=== PATIENT | male | born 1975 | race Caucasian/White ===

== ENCOUNTER → 2017-06-21 | Outpatient (CLI) | payer MEDICARE, OTHER ==
[2017-06-21 12:02] LABS: Basophils % (A) 1 %; CH 30.6; CHCM 34.2; Eosinophils # (A) 0.2 k/uL (0-0.7); Eosinophils % (A) 3 %; HCT 48.2 % (39.0-53.0); HDW 2.75; HGB 15.7 gm/dL (13.0-17.5); Luc # (Auto) 0.14; Luc % (Auto) 2; Lymphocytes # (A) 1.6 k/uL (1.0-4.8); Lymphocytes % (A) 26 %; MCH 29.4 pg (25.0-35.0); MCHC 32.7 g/dL (31.0-37.0); MCV 89.9 fL (80.0-100.0); Mean Platelet Volume 7.8; Monocytes # (A) 0.5 k/uL (0-1.0); Monocytes % (A) 8 %; Neutrophils # (A) 3.5 k/uL (1.3-7.7); Neutrophils % (A) 60 %; RBC 5.36 m/uL (4.30-5.90); WBC 5.9 k/uL (3.8-10.6); WBC (Perox) 5.87
[2017-06-21 12:15] LABS: ALT 44 U/L (21-72); AST 22 U/L (17-59); Alkaline Phosphatase 79 U/L (38-126); Anion Gap 10 mmol/L; Blood Urea Nitrogen 18 mg/dL (9-20); Calcium 9.5 mg/dL (8.4-10.2); Carbon Dioxide 29 mmol/L (22-30); Chloride 105 mmol/L (98-107); Cholesterol 171 mg/dL (<200); Glucose 90 mg/dL (74-99); HDL Cholesterol 54 mg/dL (40-60); Non-African American GFR(MDRD) 55 (>60 ml/min/1.73 sqM); Potassium 4.8 mmol/L (3.5-5.1); Sodium 144 mmol/L (137-145); Total Bilirubin 1.9 mg/dL (0.2-1.3); Total Protein 7.6 g/dL (6.3-8.2)
== END | disposition home or self-care (01) ==
LOC: LABWHC1 11:39
PROVIDERS: ATTEND Internal Medicine
DX: I10 Essential (primary) hypertension (principal); E78.5 Hyperlipidemia, unspecified
CPT/HCPCS: 36415; 80053; 80061; 84439; 84443; 85025; 99214

== ENCOUNTER 2017-11-20 07:46 | Emergency (ER) | payer MEDICARE, OTHER ==
[2017-11-20 08:31] LABS: Eosinophils % (A) 1 %; MCH 29.4 pg (25.0-35.0)
--- NOTE | 2017-11-20 08:31 | ED ---
General Adult HPI - General Chief complaint: Altered Mental Status Stated complaint: altered mental status Time Seen by Provider: 11/20/17 07:46 Source: patient, EMS, RN notes reviewed Mode of arrival: EMS Limitations: no limitations - History of Present Illness Initial comments: This a 42-year-old male who presents emergency Department with a past medical history significant for seizures. Patient states he remembers going into the tub the next thing he remembers is the paramedics were there. Patient states he believes he had a seizure. Patient states he has not been sick in the last few days and he does not have any complaints currently. Patient denies headache patient denies numbness weakness. Patient denies any visual disturbances. Patient denies any palpitations chest pain difficulty breathing or shortness of breath. Patient denies any abdominal pain patient denies nausea vomiting diarrhea. Patient denies any recent fever or chills or cough. - Related Data Home Medications Medication Instructions Recorded Confirmed Citalopram Hydrobromide [CeleXA] 40 mg PO DAILY 10/31/17 11/20/17 Dextroamphetamine/Amphetamine 20 mg PO BID@0800,1400 10/31/17 11/20/17 [Adderall] Losartan Potassium 50 mg PO DAILY 10/31/17 11/20/17 Montelukast [Singulair] 10 mg PO HS 10/31/17 11/20/17 amLODIPine [Norvasc] 5 mg PO BID 10/31/17 11/20/17 lamoTRIgine [LaMICtal] 100 mg PO DAILY 10/31/17 11/20/17 levETIRAcetam [Keppra] 500 mg PO Q12HR 10/31/17 11/20/17 Albuterol Inhaler [Ventolin Hfa 2 puff INHALATION RT-Q4H PRN 11/20/17 11/20/17 Inhaler] lamoTRIgine [LaMICtal] 200 mg PO HS 11/20/17 11/20/17 Allergies Allergy/AdvReac Type Severity Reaction Status Date / Time No Known Allergies Allergy Verified 11/20/17 07:56 Review of Systems ROS Statement: Those systems with pertinent positive or pertinent negative responses have been documented in the HPI. ROS Other: All systems not noted in ROS Statement are negative. Past Medical History Past Medical History: Asthma, Hypertension, Seizure Disorder Additional Past Medical History / Comment(s): COPD, bronchial asthma, hypertension, seizure disorder, ADHD, bipolar disorder History of Any Multi-Drug Resistant Organisms: None Reported Past Surgical History: No Surgical Hx Reported Past Anesthesia/Blood Transfusion Reactions: Unable to Obtain Additional Past Anesthesia/Blood Transfusion Reaction / Comment(s): Pt has never had any surgery. Past Psychological History: Bipolar Smoking Status: Current every day smoker Past Alcohol Use History: None Reported Past Drug Use History: None Reported - Past Family History Mother Family Medical History: Diabetes Mellitus, Hypertension Additional Family Medical History / Comment(s): Mother has depression. Father Family Medical History: Hypertension Additional Family Medical History / Comment(s): Father has depression. General Exam - General Exam Comments Initial Comments: GENERAL: Patient is well-developed and well-nourished. Patient is nontoxic and well- hydrated and is in mild distress. ENT: Neck is soft and supple. No significant lymphadenopathy is noted. Oropharynx is clear. Moist mucous membranes. Neck has full range of motion without eliciting any pain. EYES: The sclera were anicteric and conjunctiva were pink and moist. Extraocular movements were intact and pupils were equal round and reactive to light. Eyelids were unremarkable. PULMONARY: Unlabored respirations. Good breath sounds bilaterally. No audible rales rhonchi or wheezing was noted. CARDIOVASCULAR: There is a regular rate and rhythm without any murmurs gallops or rubs. ABDOMEN: Soft and nontender with normal bowel sounds. No palpable organomegaly was noted. There is no palpable pulsatile mass. SKIN: Skin is clear with no lesions or rashes and otherwise unremarkable. NEUROLOGIC: Patient is alert and oriented x3. Cranial nerves II through XII are grossly intact. Motor and sensory are also intact. Normal speech, volume and content. Symmetrical smile. MUSCULOSKELETAL: Normal extremities with adequate strength and full range of motion. No lower extremity swelling or edema. No calf tenderness. LYMPHATICS: No significant lymphadenopathy is noted PSYCHIATRIC: Normal psychiatric evaluation. Normal interpersonal interactions appears functionally intact in deals appropriately with others. No signs of depression. No signs of anxiety. No delusions. No hallucinations. Limitations: no limitations Course Vital Signs 11/20/17 11/20/17 07:48 08:38 Temperature 97.9 F Pulse Rate 89 83 Respiratory 18 18 Rate Blood Pressure 179/84 131/79 O2 Sat by Pulse 96 98 Oximetry Medical Decision Making - Medical Decision Making Patient remained without symptoms throughout his ED course. Patient states she' ll follow-up with his neurologist. Patient should not drive until he is cleared by his neurologist. - Lab Data Result diagrams: 11/20/17 08:10 11/20/17 08:10 Lab Results 11/20/17 11/20/17 Range/Units 08:10 08:10 WBC 4.9 (3.8-10.6) k/uL RBC 4.28 L (4.30-5.90) m/uL Hgb 12.6 L D (13.0-17.5) gm/dL Hct 38.1 L (39.0-53.0) % MCV 89.0 (80.0-100.0) fL MCH 29.4 (25.0-35.0) pg MCHC 33.0 (31.0-37.0) g/dL RDW 13.0 (11.5-15.5) % Plt Count 178 (150-450) k/uL Neutrophils % 67 % Lymphocytes % 22 % Monocytes % 8 % Eosinophils % 1 % Basophils % 1 % Neutrophils # 3.2 (1.3-7.7) k/uL Lymphocytes # 1.1 (1.0-4.8) k/uL Monocytes # 0.4 (0-1.0) k/uL Eosinophils # 0.1 (0-0.7) k/uL Basophils # 0.0 (0-0.2) k/uL Sodium 147 H (137-145) mmol/L Potassium 3.6 (3.5-5.1) mmol/L Chloride 108 H (98-107) mmol/L Carbon Dioxide 27 (22-30) mmol/L Anion Gap 12 mmol/L BUN 21 H (9-20) mg/dL Creatinine 1.20 (0.66-1.25) mg/dL Est GFR (MDRD) Af Amer >60 (>60 ml/min/1.73 sqM) Est GFR (MDRD) Non-Af >60 (>60 ml/min/1.73 sqM) Glucose 99 (74-99) mg/dL Calcium 9.6 (8.4-10.2) mg/dL Total Bilirubin 1.9 H (0.2-1.3) mg/dL AST 29 (17-59) U/L ALT 47 (21-72) U/L Alkaline Phosphatase 72 (38-126) U/L Total Protein 6.6 (6.3-8.2) g/dL Albumin 3.9 (3.5-5.0) g/dL Disposition Clinical Impression: Seizure Disposition: HOME SELF-CARE Instructions: Recurrent Seizures in Adults (ED) Referrals: Estefania Eddy MD [Primary Care Provider] - 1-2 days Time of Disposition: 09:11
[2017-11-20 08:38] LABS: Basophils % (A) 1 %; Eosinophils # (A) 0.1 k/uL (0-0.7); HCT 38.1 % (39.0-53.0); HGB 12.6 gm/dL (13.0-17.5); Lymphocytes # (A) 1.1 k/uL (1.0-4.8); Lymphocytes % (A) 22 %; Mean Platelet Volume 7.1; Monocytes # (A) 0.4 k/uL (0-1.0); Monocytes % (A) 8 %; Neutrophils # (A) 3.2 k/uL (1.3-7.7); Neutrophils % (A) 67 %; Platelet Count 178 k/uL (150-450); RBC 4.28 m/uL (4.30-5.90); WBC 4.9 k/uL (3.8-10.6)
[2017-11-20 08:44] LABS: ALT 47 U/L (21-72); AST 29 U/L (17-59); Albumin 3.9 g/dL (3.5-5.0); Alkaline Phosphatase 72 U/L (38-126); Anion Gap 12 mmol/L; Blood Urea Nitrogen 21 mg/dL (9-20); Calcium 9.6 mg/dL (8.4-10.2); Carbon Dioxide 27 mmol/L (22-30); Chloride 108 mmol/L (98-107); Glucose 99 mg/dL (74-99); Potassium 3.6 mmol/L (3.5-5.1); Sodium 147 mmol/L (137-145); Total Bilirubin 1.9 mg/dL (0.2-1.3); Total Protein 6.6 g/dL (6.3-8.2)
[2017-11-21 05:43] LABS: Lamotrigine (Lamictal) 4.3 ug/mL (2.0-15.0)
[2017-11-21 22:56] VITALS: BP 129/81; PULSE 80; RESP 18; TEMP 98.9
== END 2017-11-20 10:00 | disposition home or self-care (01) ==
LOC: EC 07:46
DX: G40.909 Epilepsy, unspecified, not intractable, without status epilepticus (principal); R41.82 Altered mental status, unspecified; I10 Essential (primary) hypertension; F31.9 Bipolar disorder, unspecified; F90.9 Attention-deficit hyperactivity disorder, unspecified type; F17.200 Nicotine dependence, unspecified, uncomplicated; Z79.899 Other long term (current) drug therapy
CPT/HCPCS: 36415; 80053; 80175; 80177; 85025; 99285

== ENCOUNTER → 2018-11-05 | Outpatient (CLI) | payer MEDICARE, OTHER | END | disposition home or self-care (01) | LOC: LABWHC1 10:35 | PROVIDERS: ATTEND Psychiatry & Neurology Neurology | DX: G40.009 Localization-related (focal) (partial) idiopathic epilepsy and epileptic syndromes with seizures of localized onset, not intractable, without status epilepticus (principal) | CPT/HCPCS: 36415; 80177 ==

== ENCOUNTER 2025-03-10 15:20 | Inpatient (IN) | payer MEDICARE, OTHER ==
--- NOTE | 2025-03-10 15:54 | ED ---
SOB HPI - General Chief Complaint: Shortness of Breath Stated Complaint: SOB Time Seen by Provider: 03/10/25 15:33 Source: patient, EMS, RN notes reviewed, old records reviewed Mode of arrival: EMS Limitations: no limitations - History of Present Illness Initial Comments: This is a 49-year-old male presenting with shortness of breath history of COPD continues to smoke, does do an inhaler at home with no help. Patient was seen by EMS found to have oxygen in the low 80s improving with breathing treatments and supplemental oxygen. Patient does not wear home oxygen states symptoms began yesterday worsening into today. Any activity makes him severely short of breath. No fevers no chest pain MD Complaint: shortness of breath, cough -: days(s) (2) Severity: moderate, severe Severity scale (1-10): 10 (Severe shortness of breath) Consistency: constant Improves With: rest Worsens With: exertion Known History Of: COPD, asthma Context: recent URI, recent illness Associated Symptoms: denies other symptoms - Related Data Home Medications Medication Instructions Recorded Confirmed Citalopram Hydrobromide [CeleXA] 40 mg PO DAILY 10/31/17 11/20/17 Dextroamphetamine/Amphetamine 20 mg PO BID@0800,1400 10/31/17 11/20/17 [Adderall] Losartan Potassium 50 mg PO DAILY 10/31/17 11/20/17 Montelukast [Singulair] 10 mg PO HS 10/31/17 11/20/17 amLODIPine [Norvasc] 5 mg PO BID 10/31/17 11/20/17 lamoTRIgine [LaMICtal] 100 mg PO DAILY 10/31/17 11/20/17 levETIRAcetam [Keppra] 500 mg PO Q12HR 10/31/17 11/20/17 Albuterol Inhaler [Ventolin Hfa 2 puff INHALATION RT-Q4H PRN 11/20/17 11/20/17 Inhaler] lamoTRIgine [LaMICtal] 200 mg PO HS 11/20/17 11/20/17 Allergies Allergy/AdvReac Type Severity Reaction Status Date / Time No Known Allergies Allergy Verified 03/10/25 17:11 Review of Systems ROS Statement: Those systems with pertinent positive or pertinent negative responses have been documented in the HPI. ROS Other: All systems not noted in ROS Statement are negative. Past Medical History Past Medical History: Asthma, Hypertension, Seizure Disorder Additional Past Medical History / Comment(s): COPD, bronchial asthma, hypertension, seizure disorder, ADHD, bipolar disorder History of Any Multi-Drug Resistant Organisms: None Reported Past Surgical History: No Surgical Hx Reported Past Anesthesia/Blood Transfusion Reactions: Unable to Obtain Additional Past Anesthesia/Blood Transfusion Reaction / Comment(s): Pt has never had any surgery. Past Psychological History: ADD/ADHD, Bipolar Smoking Status: Current every day smoker Past Alcohol Use History: None Reported Past Drug Use History: None Reported - Past Family History Mother Family Medical History: Diabetes Mellitus, Hypertension Additional Family Medical History / Comment(s): Mother has depression. Father Family Medical History: Hypertension Additional Family Medical History / Comment(s): Father has depression. General Exam General appearance: alert, in no apparent distress, anxious Head exam: Present: atraumatic, normocephalic, normal inspection Eye exam: Present: normal appearance, PERRL, EOMI. Absent: scleral icterus, conjunctival injection, periorbital swelling ENT exam: Present: normal exam, mucous membranes moist Neck exam: Present: normal inspection. Absent: tenderness, meningismus, lymphadenopathy Respiratory exam: Present: respiratory distress, wheezes, accessory muscle use, decreased breath sounds, prolonged expiratory. Absent: rales, rhonchi, stridor Cardiovascular Exam: Present: regular rate, normal rhythm, normal heart sounds. Absent: systolic murmur, diastolic murmur, rubs, gallop, clicks GI/Abdominal exam: Present: soft, normal bowel sounds. Absent: distended, tenderness, guarding, rebound, rigid Extremities exam: Present: normal inspection, full ROM, normal capillary refill. Absent: tenderness, pedal edema, joint swelling, calf tenderness Back exam: Present: normal inspection Neurological exam: Present: alert, oriented X3, CN II-XII intact Psychiatric exam: Present: normal affect, normal mood Skin exam: Present: warm, dry, intact, normal color. Absent: rash Course Vital Signs 03/10/25 03/10/25 03/10/25 15:24 16:29 16:39 Temperature 98.0 F Pulse Rate 75 74 71 Respiratory 20 18 18 Rate Blood Pressure 125/81 O2 Sat by Pulse 92 L Oximetry - Reevaluation(s) Reevaluation #1: 03/10/25 16:08 Medical records reviewed No significant recent or inpatient admissions for COPD Reevaluation #2: 03/10/25 17:13 Patient continues to improve with supplemental O2 and breathing treatments Reevaluation #3: 03/10/25 17:13 Patient informed of results questions answered Reevaluation #4: 03/10/25 16:02 Was pt. sent in by a medical professional or institution (, [facility], [facility], urgent care, hospital, or residential...) When possible be specific @ -no Did you speak to anyone other than the patient for history (EMS, parent, family, police, friend...)? What history was obtained from this source @ -no Did you review nursing and triage notes (agree or disagree)? Why? @ -agree Are old charts reviewed (outside hosp., previous admission, EMS record, old EKG, old radiological studies, urgent care reports/EKG's, residential records)? Report findings @ -yes Differential Diagnosis (chest pain, altered mental status, abdominal pain women, abdominal pain men, vaginal bleeding, weakness, fever, dyspnea, syncope, headache, dizziness, GI bleed, back pain, seizure, CVA, palpatations, mental health, musculoskeletal)? @ -prior EKG interpreted by me (3pts min.). @ -yes X-rays interpreted by me (1pt min.). @ -yes negative for acute disease CT interpreted by me (1pt min.). @ -no U/S interpreted by me (1pt. min.). @ -no What testing was considered but not performed or refused? (CT, X-rays, U/S, labs)? Why? @ -none What meds were considered but not given or refused? Why? @ -none Did you discuss the management of the patient with other professionals (professionals i.e. [facility], [facility], lab, RT, psych nurse, social studies department chair, product handler, teacher, district resource officer, immigration case worker)? Give summary @ -no Was smoking cessation discussed for >3mins.? @ -no Was critical care preformed (if so, how long)? @ -no Were there social determinants of health that impacted care today? How? (Homelessness, low income, unemployed, alcoholism, drug addiction, transportation, low edu. Level, literacy, decrease access to med. care, fdc, rehab)? @ -none Was there de-escalation of care discussed even if they declined (Discuss DNR or withdrawal of care, Hospice)? DNR status @ -no What co-morbidities impacted this encounter? (DM, HTN, Smoking, COPD, CAD, Cancer, CVA, ARF, Chemo, Hep., AIDS, mental health diagnosis, sleep apnea, morbid obesity)? @ -none Was patient admitted / discharged? Hospital course, mention meds given and route, prescriptions, significant lab abnormalities, going to OR and other pertinent info. @ - Undiagnosed new problem with uncertain prognosis? @ -no Drug Therapy requiring intensive monitoring for toxicity (Heparin, Nitro, Insulin, Cardizem)? @ -no Were any procedures done? @ -no Diagnosis/symptom? @ - Acute, or Chronic, or Acute on Chronic? @ -Acute Uncomplicated (without systemic symptoms) or Complicated (systemic symptoms)? @ -Complicated Side effects of treatment? @ -no Exacerbation, Progression, or Severe Exacerbation? @ -exacerbation Poses a threat to life or bodily function? How? (Chest pain, [place], [place], pneumonia, PE, COPD, DKA, ARF, appy, cholecystitis, CVA, Diverticulitis, Homicidal, Suicidal, threat to staff... and all critical care pts) @ -yes Reevaluation #5: Differential Dyspnea: Coronary syndrome, arrhythmia, tamponade, asthma, COPD, pulmonary embolism, pneumonia, pneumothorax, pulmonary effusion, anaphylaxis, diabetic ketoacidosis, flailed chest, pulmonary contusion, diaphragmatic rupture, anemia, neuromuscular, this is not meant to be an all-inclusive list. - Consultations Consultation #1: Spoke with [facility] who agrees to admit this patient Medical Decision Making - Medical Decision Making 49 male to ER in severe respiratory distress coming in with hypoxia and COPD exacerbation improving with treatments here in the ER patient found to have pneumonia on x-ray and will admit for IV antibiotics and supportive care - Lab Data Result diagrams: 03/10/25 15:41 03/10/25 15:41 Lab Results 03/10/25 03/10/25 03/10/25 Range/Units 15:41 15:41 15:41 WBC 6.15 (4.50-10.00) 10*3/uL RBC 4.14 L (4.40-5.60) 10*6/uL Hgb 12.5 L (13.0-17.0) g/dL Hct 36.6 L (39.6-50.0) % MCV 88.4 (80.0-97.0) fL MCH 30.2 (27.0-32.0) pg MCHC 34.2 (32.0-37.0) g/dL Plt Count 175 (140-440) 10*3/uL MPV 10.1 (9.5-12.2) fL Immature Gran % (Auto) 0.3 % Neutrophils % 75.7 % Lymphocytes % 12.7 % Monocytes % 9.4 % Eosinophils % 1.6 % Basophils % 0.3 % Immature Gran # 0.02 (0.00-0.04) 10*3/uL Neutrophils # 4.65 (1.80-7.70) 10*3/uL Lymphocytes # 0.78 L (0.90-5.00) 10*3/uL Monocytes # 0.58 (0.20-1.00) 10*3/uL Eosinophils # 0.10 (0.04-0.35) 10*3/uL Basophils # 0.02 (0.00-0.10) 10*3/uL Immature Plt Fraction 1.9 (1.1-6.1) % Sodium 140 (137-145) mmol/L Potassium 3.7 (3.5-5.1) mmol/L Chloride 103 (98-107) mmol/L Carbon Dioxide 29 (22-30) mmol/L Anion Gap 8 mmol/L BUN 14 (9-20) mg/dL Creatinine 1.34 H (0.66-1.25) mg/dL Est GFR (CKD-EPI)AfAm 71 (>60 ml/min/1.73 sqM) Est GFR (CKD-EPI)NonAf 61 (>60 ml/min/1.73 sqM) Glucose 118 H (74-99) mg/dL Plasma Lactic Acid Pietro 0.7 (0.7-2.0) mmol/L Calcium 8.8 (8.4-10.2) mg/dL Magnesium 2.0 (1.6-2.3) mg/dL Total Bilirubin 1.3 (0.2-1.3) mg/dL AST 17 (17-59) U/L ALT 14 (4-49) U/L Alkaline Phosphatase 70 (38-126) U/L Troponin I (0.000-0.034) ng/mL NT-Pro-B Natriuret Pep 464 pg/mL Total Protein 6.4 (6.3-8.2) g/dL Albumin 3.9 (3.5-5.0) g/dL 03/10/25 Range/Units 15:41 WBC (4.50-10.00) 10*3/uL RBC (4.40-5.60) 10*6/uL Hgb (13.0-17.0) g/dL Hct (39.6-50.0) % MCV (80.0-97.0) fL MCH (27.0-32.0) pg MCHC (32.0-37.0) g/dL Plt Count (140-440) 10*3/uL MPV (9.5-12.2) fL Immature Gran % (Auto) % Neutrophils % % Lymphocytes % % Monocytes % % Eosinophils % % Basophils % % Immature Gran # (0.00-0.04) 10*3/uL Neutrophils # (1.80-7.70) 10*3/uL Lymphocytes # (0.90-5.00) 10*3/uL Monocytes # (0.20-1.00) 10*3/uL Eosinophils # (0.04-0.35) 10*3/uL Basophils # (0.00-0.10) 10*3/uL Immature Plt Fraction (1.1-6.1) % Sodium (137-145) mmol/L Potassium (3.5-5.1) mmol/L Chloride (98-107) mmol/L Carbon Dioxide (22-30) mmol/L Anion Gap mmol/L BUN (9-20) mg/dL Creatinine (0.66-1.25) mg/dL Est GFR (CKD-EPI)AfAm (>60 ml/min/1.73 sqM) Est GFR (CKD-EPI)NonAf (>60 ml/min/1.73 sqM) Glucose (74-99) mg/dL Plasma Lactic Acid Pietro (0.7-2.0) mmol/L Calcium (8.4-10.2) mg/dL Magnesium (1.6-2.3) mg/dL Total Bilirubin (0.2-1.3) mg/dL AST (17-59) U/L ALT (4-49) U/L Alkaline Phosphatase (38-126) U/L Troponin I <0.012 (0.000-0.034) ng/mL NT-Pro-B Natriuret Pep pg/mL Total Protein (6.3-8.2) g/dL Albumin (3.5-5.0) g/dL - Radiology Data Radiology results: report reviewed (Chest x-ray is positive for pneumonia), image reviewed Critical Care Time Critical Care Time: Yes Total Critical Care Time: 31 Disposition Clinical Impression: Asthma with acute exacerbation, Acute exacerbation of chronic obstructive pulm onary disease, Community acquired pneumonia, Hypoxia Disposition: ADMITTED IP TO THIS [facility] Condition: Serious Is patient prescribed a controlled substance at d/c from ED?: No Referrals: Yenni Salinas MD [Primary Care Provider] - 1-2 days Time of Disposition: 17:00
[2025-03-10 15:56] LABS: Basophils # (A) 0.02 10*3/uL (0.00-0.10); Basophils % (A) 0.3 %; Eosinophils % (A) 1.6 %; HCT 36.6 % (39.6-50.0); HGB 12.5 g/dL (13.0-17.0); Immature Platelet Fraction 1.9 % (1.1-6.1); Lymphocytes # (A) 0.78 10*3/uL (0.90-5.00); Lymphocytes % (A) 12.7 %; MCH 30.2 pg (27.0-32.0); MCHC 34.2 g/dL (32.0-37.0); MCV 88.4 fL (80.0-97.0); Mean Platelet Volume 10.1 fL (9.5-12.2); Monocytes # (A) 0.58 10*3/uL (0.20-1.00); Monocytes % (A) 9.4 %; Neutrophils # (A) 4.65 10*3/uL (1.80-7.70); Neutrophils % (A) 75.7 %; RBC 4.14 10*6/uL (4.40-5.60); RDW 12.9 % (11.5-14.5); WBC 6.15 10*3/uL (4.50-10.00)
[2025-03-10 16:03] LABS: ALT 14 U/L (4-49); AST 17 U/L (17-59); African American GFR (CKD) 71 (>60 ml/min/1.73 sqM); Albumin 3.9 g/dL (3.5-5.0); Alkaline Phosphatase 70 U/L (38-126); Anion Gap 8 mmol/L; Blood Urea Nitrogen 14 mg/dL (9-20); Calcium 8.8 mg/dL (8.4-10.2); Carbon Dioxide 29 mmol/L (22-30); Chloride 103 mmol/L (98-107); Glucose 118 mg/dL (74-99); Non-African American GFR(CKD) 61 (>60 ml/min/1.73 sqM); Potassium 3.7 mmol/L (3.5-5.1); Sodium 140 mmol/L (137-145); Total Bilirubin 1.3 mg/dL (0.2-1.3); Total Protein 6.4 g/dL (6.3-8.2)
--- NOTE | 2025-03-10 16:06 | XR ---
EXAMINATION TYPE: XR chest 2V DATE OF EXAM: 03/10/2025 4:00 PM COMPARISON: Chest radiographs from 11/01/2017. CLINICAL INDICATION: Male, 49 years old with history of difficulty breathing; [facility] TECHNIQUE: XR chest 2V Frontal and lateral views of the chest. FINDINGS: Lungs/Pleura: Right lower lobe airspace opacities on frontal view. There is no evidence of pleural ef fusion, focal consolidation, or pneumothorax. Pulmonary vascularity: Unremarkable. Heart/mediastinum: Cardiomediastinal silhouette is unremarkable. Musculoskeletal: No acute osseous pathology. IMPRESSION: Right lower lobe airspace opacities correlate for pneumonia [facility] Miguel Mott, , 03/10/2025 4:03 PM
[2025-03-10 16:10] LABS: NT-Pro-B-Type Natriuretic Pept 464 pg/mL
[2025-03-10] MEDS: IPRATROPIUM-ALBUTEROL 3 ML NEB INHALATION STA ×2 (16:29→18:37)
[2025-03-10] MEDS: methylPREDNISolone SOD SUCCI 125 MG/2 ML VIAL IV STA (16:33)
[2025-03-10] MEDS: SODIUM CHLORIDE 0.9% 1,000 ML IV SCH (16:35)
[2025-03-10 16:49] LABS: Platelet Count 175 10*3/uL (140-440)
[2025-03-10] MEDS ORDERED: PNEUMONIA PROTOCOL UTILIZED 1 EACH MISC PO PRN (17:11)
[2025-03-10 17:18] LABS: Partial Thromboplastin Time 26.1 sec (22.0-30.0)
[2025-03-10] MEDS: AZITHROMYCIN 500 MG in SODIUM CHLORIDE 0.9% 250 ML IVPB STA (19:29)
[2025-03-10] MEDS: ALBUTEROL NEBULIZED 2.5 MG/3 ML INHALATION SCH (19:59)
--- NOTE | 2025-03-11 03:35 | P.CNPUL ---
History of Present Illness Consult date: 03/11/25 Requesting physician: Elías Van Reason for consult: hypoxemia Chief complaint: Shortness of breath History of present illness: Patient is a 49-year-old male with past medical history significant for asthma, current ongoing tobacco dependence, seizure disorder, hypertension. His primary care provider is Dr. Salinas. Patient brought in by EMS yesterday afternoon after being originally called for increased work of breathing. Patient was found to be hypoxic with an SpO2 reading in the low 80s on room air. No improvement with multiple nebulized treatments. Reported to be in some respiratory distress and wheezing in the ED. Patient states he had a hard time breathing over the last 2 days. Associated cough with occasional sputum production. Denies any fevers or chills. Denies hemoptysis. Denies nausea, vomiting, diarrhea, abdominal pain. Denies any recent outpatient treatment with antibiotics. Denies any known sick contacts. Denies any chest pain heart palpitations, lightheadedness or syncopal events, lower extremity edema. States he does have a history of asthma/COPD, has an as needed albuterol rescue inhaler at home which he does not routinely need. He also smokes approximately 1 pack/day. Workup in the emergency department including a chest x-ray remarkable for a subtle right lower lobe airspace opacity. CBC: WBC count 6, hemoglobin 12.5, platelets 175. CMP with sodium 140, potassium 3.7, chloride 103, serum bicarb 29, BUN 14, creatinine 1.34, glucose 118. Lactic 0.7. LFTs unremarkable. Troponin less than 0.012. NT proBNP 464. Normal saline infusing at 50 mL/h. Patient currently being evaluated on the general medical floor. He is sitting up in bed on 2 L/min nasal cannula. Endorses above-mentioned symptoms. Not in any acute distress while at rest. Currently afebrile. Covered on a combination of azithromycin and Rocephin. Nontoxic appearance. Vital signs are stable. Review of Systems Constitutional: Reports fatigue, Denies chills, Denies fever, Denies poor appetite, Denies sweats, Denies weakness, Denies weight gain, Denies weight loss Ears, nose, mouth and throat: Denies headache, Denies nasal congestion, Denies nasal discharge, Denies post-nasal drip, Denies sinus pain, Denies sinus pressure, Denies sore throat Cardiovascular: Reports dyspnea on exertion, Reports shortness of breath, Denies chest pain, Denies leg edema, Denies lightheadedness, Denies orthopnea, Denies palpitations, Denies paroxysmal nocturnal dyspnea, Denies syncope Respiratory: Reports congestion, Reports cough with sputum, Reports dyspnea, Reports wheezing, Denies hemoptysis, Denies home oxygen, Denies pain on inspiration Gastrointestinal: Denies abdominal pain, Denies change in bowel habits, Denies diarrhea, Denies nausea, Denies vomiting Genitourinary: Denies dysuria Musculoskeletal: Denies limitation of motion Integumentary: Denies unusual bruising Neurological: Reports seizures (Last reported seizure approximately 4 to 5 years ago), Denies headaches, Denies syncope Psychiatric: Denies anxiety, Denies depression Past Medical History Past Medical History: Asthma, Hypertension, Seizure Disorder Additional Past Medical History / Comment(s): COPD, bronchial asthma, hypertension, seizure disorder, ADHD, bipolar disorder History of Any Multi-Drug Resistant Organisms: None Reported Past Surgical History: No Surgical Hx Reported Past Anesthesia/Blood Transfusion Reactions: Unable to Obtain Additional Past Anesthesia/Blood Transfusion Reaction / Comment(s): Pt has never had any surgery. Past Psychological History: ADD/ADHD, Bipolar Additional Psychological History / Comment(s): Pt resides with family. He works in [employer]. He is independent. Smoking Status: Current every day smoker Past Alcohol Use History: None Reported Additional Past Alcohol Use History / Comment(s): Pt started smoking in 1990 and is a ppd smoker. Past Drug Use History: None Reported - Past Family History Mother Family Medical History: Diabetes Mellitus, Hypertension Additional Family Medical History / Comment(s): Mother has depression. Father Family Medical History: Hypertension Additional Family Medical History / Comment(s): Father has depression. Medications and Allergies Home Medications Medication Instructions Recorded Confirmed Type Citalopram Hydrobromide [CeleXA] 40 mg PO DAILY 10/31/17 03/10/25 History Dextroamphetamine/Amphetamine 40 mg PO DAILY 10/31/17 03/10/25 History [Adderall] amLODIPine [Norvasc] 10 mg PO DAILY 10/31/17 03/10/25 History lamoTRIgine [LaMICtal] 200 mg PO DAILY 10/31/17 03/10/25 History levETIRAcetam [Keppra] 1,000 mg PO Q12HR 10/31/17 03/10/25 History Albuterol Inhaler [Ventolin Hfa 2 puff INHALATION RT-Q6H PRN 11/20/17 03/10/25 History Inhaler] lamoTRIgine [LaMICtal] 100 mg PO HS 11/20/17 03/10/25 History Losartan Potassium 100 mg PO DAILY 03/10/25 03/10/25 History Allergies Allergy/AdvReac Type Severity Reaction Status Date / Time No Known Allergies Allergy Verified 03/10/25 17:11 Physical Exam Vitals: Vital Signs Temp Pulse Pulse Resp BP BP Pulse Ox 03/11/25 00:45 98.0 F 63 18 105/59 95 03/10/25 21:43 98.7 F 66 20 121/76 93 L 03/10/25 20:56 76 16 138/75 93 L 03/10/25 20:14 84 03/10/25 20:00 83 03/10/25 19:31 86 18 143/73 92 L 03/10/25 16:39 71 18 03/10/25 16:29 74 18 03/10/25 15:24 98.0 F 75 20 125/81 92 L Intake and Output 03/10/25 03/10/25 03/11/25 14:59 22:59 06:59 Other: Voiding Method Toilet Weight 140.614 kg 140.614 kg GENERAL EXAM: Alert, 49-year-old male, well-nourished, comfortable in no apparent distress. HEAD: Normocephalic and atraumatic EYES: Normal reaction of pupils, equal size. NOSE: Clear with pink turbinates. THROAT: No erythema or exudates. NECK: No masses, no JVD. CHEST: No chest wall deformity. LUNGS: Equal air entry with expiratory wheezing and rhonchi heard predominantly over the right posterior lung velez. on 2 L/min nasal cannula. No conversational dyspnea or accessory muscle use while at rest CVS: S1 and S2 normal with no audible murmur, regular rhythm. No extra heart sounds ABDOMEN: No hepatosplenomegaly, active bowel sounds, no guarding or rigidity. SPINE: No scoliosis or deformity SKIN: Chronic venous stasis changes to the lower extremities bilaterally CENTRAL NERVOUS SYSTEM: No focal deficits, tone is normal in all 4 extremities. EXTREMITIES: There is no peripheral edema, clubbing, or cyanosis. Peripheral pulses are intact. Results - Laboratory Findings CBC and BMP: 03/10/25 15:41 03/10/25 15:41 PT/INR, D-dimer PT 11.0 sec (10.0-12.5) 03/10/25 16:30 INR 1.0 (<1.2) 03/10/25 16:30 Abnormal lab findings: Abnormal Labs 03/10/25 03/10/25 15:41 15:41 RBC 4.14 L Hgb 12.5 L Hct 36.6 L Lymphocytes # 0.78 L Creatinine 1.34 H Glucose 118 H - Diagnostic Findings Chest x-ray: image reviewed Assessment and Plan Assessment: Acute exacerbation of asthma/COPD, chest x-ray showing subtle right lower lobe infiltrate concerning for possible community-acquired pneumonia Acute hypoxemic respiratory failure, currently on 2 L/min nasal cannula, secondary to above Acute on probably chronic kidney disease Chronic ongoing tobacco dependence, current 1 pack/day smoker History of seizure disorder, last reported seizure approximately 4 or 5 years ago Hypertension History of allergic rhinitis Obesity, with a BMI of 36.8 kg/m Plan: Patient's medications, labs, imaging reviewed Subtle right lower lobe opacity concerning for community-acquired pneumonia Continue combination of azithromycin and Rocephin Repeat chest x-ray in the morning Continue DuoNebs [id number] Continue IV Solu-Medrol Smoking cessation counseling performed Nicotine replacement refused We will continue to follow I have personally seen and examined the patient, performed the documentation and the assessment and plan as written. Number of minutes spent on the visit:20 Joint evaluation that was done along with the nurse practitioner. This evaluation was done and 32 minutes. The patient is coming in for an acute exacerbation of right lower lobe pneumonia. The patient also has a component of an acute on top of chronic kidney injury. Viral screen was negative. Legio olivia urine antigen was negative. Chest x-ray showing right lower lobe consolidation patient is currently on room combination of Rocephin and Zithromax. He is on IV Solu-Medrol. He is on DuoNeb nebulized treatments [id number]. He is stable on 2 L of oxygen by nasal cannula. No other significant events. Will continue to follow. Time with Patient: Greater than 30
[2025-03-11 04:59] LABS: Influenza A Not Detected (Not Detectd); Influenza B Not Detected (Not Detectd); RSV Not Detected (Not Detectd)
[2025-03-11] MEDS: PANTOPRAZOLE 40 MG TABLET PO SCH (06:45)
[2025-03-11] MEDS: methylPREDNISolone SOD SUCCI 125 MG/2 ML VIAL IV SCH (06:45)
--- NOTE | 2025-03-11 07:18 | XR ---
EXAMINATION TYPE: XR chest 2V DATE OF EXAM: 03/11/2025 6:37 AM COMPARISON: 03/10/2025 CLINICAL INDICATION: Male, 49 years old with history of pneumonia, TECHNIQUE: XR chest 2V view(s) obtained. FINDINGS: The heart size is normal. The pulmonary vasculature is normal. No suspicious focal consolidations.. IMPRESSION: 1. No acute pulmonary process. [facility], , 03/11/2025 7:15 AM
[2025-03-11] MEDS: lamoTRIgine 100 MG TAB PO SCH ×2 (07:59→22:09)
[2025-03-11] MEDS: levETIRAcetam 500 MG TAB PO SCH (08:00)
[2025-03-11] MEDS: AZITHROMYCIN 500 MG in SODIUM CHLORIDE 0.9% 250 ML IVPB SCH (08:00)
[2025-03-11] MEDS: cefTRIAXone 2 GM in DEXTROSE 5% IN WATER 50 ML IVPB SCH (08:00)
[2025-03-11] MEDS: CITALOPRAM HYDROBROMIDE 20 MG TAB PO SCH (08:00)
[2025-03-11] MEDS: FAMOTIDINE 20 MG/2 ML VIAL IV SCH (08:00)
[2025-03-11] MEDS: HEPARIN SODIUM,PORCINE 5,000 UNIT/ML 1 ML VIAL SQ SCH (08:00)
--- NOTE | 2025-03-11 10:46 | P.HPIM ---
History of Present Illness Patient is a pleasant 49 years old male who is a known case of nicotine dependence. He follow-up with Dr. Ruby. He is not on home oxygen. He presents because of worsening dyspnea with cough and yellow phlegm over 2 days but no chest pain. No abdominal pain or diarrhea. No vomiting or urinary complaints. No headache dizziness weakness numbness. He smokes about 1 pack/day and he was counseled to quit and he agrees and also a grees to the nicotine patch. No alcohol or illicit drugs. He complains from little dizziness when he is becoming hypoxic and trying to get up but he looks fine now. He is currently on 3 L of oxygen and saturating 93% to 95%, at home he was not on oxygen. On admission he was found to have 81% on room air which is greatly improved with bronchodilator. Creatinine 1.3 with baseline 1.1-1.2. Rest of labs including CBC, BMP, LFT, INR, troponin were unremarkable Chest x-ray showing possible right lower lobe opacity suspicious for pneumonia his losartan 100 mg and Norvasc 5 mg were placed on hold Is getting ceftriaxone and Zithromax IV Solu-Medrol 60 mg a day He is on normal saline at 75 mL/h Review of Systems Review of systems CONSTITUTIONAL: No fever, no malaise, no fatigue. HEENT: No recent visual problems or hearing problems. Denied any sore throat. CARDIOVASCULAR: No orthopnea, PND, no palpitations, no syncope. PULMONARY: No chest wall tenderness, no hemoptysis. GASTROINTESTINAL: No diarrhea, no nausea, no vomiting, no abdominal pain. Normoactive bowel sounds. NEUROLOGICAL: No headaches, no weakness, no numbness. HEMATOLOGICAL: Denies any bleeding or petechiae. GENITOURINARY: Denies any burning micturition, frequency, or urgency. MUSCULOSKELETAL/RHEUMATOLOGICAL: Denies any joint pain, swelling, or any muscle pain. ENDOCRINE: Denies any polyuria or polydipsia. Past Medical History Past Medical History: Asthma, Hypertension, Seizure Disorder Additional Past Medical History / Comment(s): COPD, bronchial asthma, hypertension, seizure disorder, ADHD, bipolar disorder History of Any Multi-Drug Resistant Organisms: None Reported Past Surgical History: No Surgical Hx Reported Past Anesthesia/Blood Transfusion Reactions: Unable to Obtain Additional Past Anesthesia/Blood Transfusion Reaction / Comment(s): Pt has never had any surgery. Past Psychological History: ADD/ADHD, Bipolar Additional Psychological History / Comment(s): Pt resides with family. He works in [employer].. He is independent. Smoking Status: Current every day smoker Past Alcohol Use History: None Reported Additional Past Alcohol Use History / Comment(s): Pt started smoking in 1990 and is a ppd smoker. Past Drug Use History: None Reported - Past Family History Mother Family Medical History: Diabetes Mellitus, Hypertension Additional Family Medical History / Comment(s): Mother has depression. Father Family Medical History: Hypertension Additional Family Medical History / Comment(s): Father has depression. Medications and Allergies Home Medications Medication Instructions Recorded Confirmed Type Citalopram Hydrobromide [CeleXA] 40 mg PO DAILY 10/31/17 03/10/25 History Dextroamphetamine/Amphetamine 40 mg PO DAILY 10/31/17 03/10/25 History [Adderall] amLODIPine [Norvasc] 10 mg PO DAILY 10/31/17 03/10/25 History lamoTRIgine [LaMICtal] 200 mg PO DAILY 10/31/17 03/10/25 History levETIRAcetam [Keppra] 1,000 mg PO Q12HR 10/31/17 03/10/25 History Albuterol Inhaler [Ventolin Hfa 2 puff INHALATION RT-Q6H PRN 11/20/17 03/10/25 History Inhaler] lamoTRIgine [LaMICtal] 100 mg PO HS 11/20/17 03/10/25 History Losartan Potassium 100 mg PO DAILY 03/10/25 03/10/25 History Allergies Allergy/AdvReac Type Severity Reaction Status Date / Time No Known Allergies Allergy Verified 03/10/25 17:11 Physical Exam Vitals: Vital Signs Temp Pulse Pulse Resp BP BP BP 03/11/25 08:38 80 03/11/25 08:29 80 03/11/25 06:43 97.3 F L 73 20 121/72 03/11/25 00:45 98.0 F 63 18 105/59 03/10/25 21:43 98.7 F 66 20 121/76 03/10/25 20:56 76 16 138/75 03/10/25 20:14 84 03/10/25 20:00 83 03/10/25 19:31 86 18 143/73 03/10/25 16:39 71 18 03/10/25 16:29 74 18 03/10/25 15:24 98.0 F 75 20 125/81 Pulse Ox 03/11/25 08:38 03/11/25 08:29 98 03/11/25 06:43 92 L 03/11/25 00:45 95 03/10/25 21:43 93 L 03/10/25 20:56 93 L 03/10/25 20:14 03/10/25 20:00 03/10/25 19:31 92 L 03/10/25 16:39 03/10/25 16:29 03/10/25 15:24 92 L Intake and Output 03/10/25 03/11/25 03/11/25 22:59 06:59 14:59 Intake Total 120 Balance 120 Intake: Oral 120 Other: Voiding Method Toilet # Voids 2 Weight 140.614 kg 140.614 kg -GENERAL: The patient is alert and oriented x3, not in any acute distress. Well developed, well nourished. Obese HEENT: Pupils are round and equally reacting to light. EOMI. No scleral icterus. No conjunctival pallor. Normocephalic, atraumatic. No pharyngeal erythema. No thyromegaly. CARDIOVASCULAR: S1 and S2 present. No murmurs, rubs, or gallops. -PULMONARY: Chest is clear to auscultation, with decreased air entry on both alexa es, no bilateral scattered wheezing , no crackles. ABDOMEN: Soft, nontender, nondistended, normoactive bowel sounds. No palpable organomegaly. MUSCULOSKELETAL: No joint swelling or deformity. EXTREMITIES: No cyanosis, clubbing, or pedal edema. NEUROLOGICAL: Gross neurological examination did not reveal any focal deficits. SKIN: No rashes. no petechiae. Results CBC & Chem 7: 03/10/25 15:41 03/10/25 15:41 Labs: Abnormal Lab Results - Last 24 Hours (Table) 03/10/25 03/10/25 Range/Units 15:41 15:41 RBC 4.14 L (4.40-5.60) 10*6/uL Hgb 12.5 L (13.0-17.0) g/dL Hct 36.6 L (39.6-50.0) % Lymphocytes # 0.78 L (0.90-5.00) 10*3/uL Creatinine 1.34 H (0.66-1.25) mg/dL Glucose 118 H (74-99) mg/dL Thrombosis Risk Factor Assmnt - Choose All That Apply Any of the Below Risk Factors Present?: Yes Each Factor Represents 1 point: Age 41-60 years Thrombosis Risk Factor Assessment Total Risk Factor Score: 1 Thrombosis Risk Factor Assessment Level: Low Risk Assessment and Plan Assessment: Acute COPD exacerbation Right lower lobe pneumonia Acute hypoxic respiratory failure Nicotine dependence Obesity with BMI 36.8 Mild acute kidney injury Seizure disorder Plan: Continue ceftriaxone and Zithromax Continue with IV Solu-Medrol Continue with normal saline 75 mL/h Nicotine patch Pulmonary team consult Continue seizure medication Keppra and Lamictal Keep holding Norvasc and losartan with close monitoring of blood pressure Labs and medication were reviewed.. Continue same treatment. Continue with symptomatic treatment. Resume home medication. Monitor labs and vitals. DVT and GI prophylaxis. Further recommendations as per clinical course of the patient DVT prophylaxis: Subcutaneous heparin GI Prophylaxis: Pepcid PT/OT: Pending Prognosis is guarded
[2025-03-11] MEDS: NICOTINE 21MG/24HR PATCH TRANSDERM SCH (12:12)
[2025-03-12] MEDS: SODIUM CHLORIDE 0.9% 1,000 ML IV SCH (06:57)
[2025-03-12 08:34] LABS: Basophils # (A) 0 X 10*3/uL (0.00-0.10); Basophils % (A) 0 %; Eosinophils # (A) 0 X 10*3/uL (0.04-0.35); Eosinophils % (A) 0 %; HCT 37.4 % (39.6-50.0); HGB 11.8 g/dL (13.0-17.0); Lymphocytes # (A) 0.42 X 10*3/uL (0.90-5.00); Lymphocytes % (A) 4.9 %; MCH 28.9 pg (27.0-32.0); MCHC 31.6 g/dL (32.0-37.0); MCV 91.7 FL (80.0-97.0); Mean Platelet Volume 10.6 FL (9.5-12.2); Monocytes # (A) 0.43 X 10*3/uL (0.20-1.00); NRBC Per 100 WBC 0 X 10*3/uL (0.00-0.01); Neutrophils # (A) 7.65 X 10*3/uL (1.80-7.70); Neutrophils % (A) 89.6 %; Platelet Count 273 X 10*3/uL (140-440); RBC 4.08 X 10*6/uL (4.40-5.60); RDW 13.2 % (11.5-14.5); WBC 8.54 X 10*3/uL (4.50-10.00)
[2025-03-12 09:11] LABS: BUN/Creat Ratio 19.38 Ratio (12.00-20.00); Blood Urea Nitrogen 25.2 mg/dL (9.0-27.0); Chloride 104 mmol/L (96-109); Glucose 124 mg/dL (70-110); Potassium 4.9 mmol/L (3.5-5.5); Sodium 138 mmol/L (135-145)
[2025-03-12 09:12] LABS: Carbon Dioxide 25.7 mmol/L (21.6-31.8)
--- NOTE | 2025-03-12 10:04 | P.PN ---
Subjective Patient is a pleasant 49 years old male who is a known case of nicotine dependence. He follow-up with Dr. Ruby. He is not on home oxygen. He presents because of worsening dyspnea with cough and yellow phlegm over 2 days but no chest pain. No abdominal pain or diarrhea. No vomiting or urinary complaints. No headache dizziness weakness numbness. He smokes about 1 pack/day and he was counseled to quit and he agrees and also agrees to the nicotine patch. No alcohol or illicit drugs. He complains from little dizziness when he is becoming hypoxic and trying to get up but he looks fine now. He is currently on 3 L of oxygen and saturating 93% to 95%, at home he was not on oxygen. On admission he was found to have 81% on room air which is greatly improved with bronchodilator. Creatinine 1.3 with baseline 1.1-1.2. Rest of labs including CBC, BMP, LFT, INR, troponin were unremarkable Chest x-ray showing possible right lower lobe opacity suspicious for pneumonia his losartan 100 mg and Norvasc 5 mg were placed on hold Is getting ceftriaxone and Zithromax IV Solu-Medrol 60 mg a day He is on normal saline at 75 mL/h 03/12 Patient breathing is improving, no chest pain He still has some exertional dyspnea He is on 2 L oxygen saturating 96%. He is not on oxygen at home Blood pressure slightly elevated while he is on steroids. Will resume his losartan 100 mg and Norvasc 10 mg He remains on ceftriaxone and Zithromax and IV Solu-Medrol 60 mg and normal saline 75 mL/h Blood culture still pending Active Medications Generic Name Dose Route Start Last Admin Trade Name Carie PRN Reason Stop Dose Admin Albuterol Sulfate 2.5 mg 03/10/25 22:00 03/12/25 08:57 Albuterol Nebulized 2.5 Mg/3 Ml INHALATION 2.5 mg RT-QID CEM Administration Amlodipine Besylate 10 mg 03/12/25 09:30 Amlodipine 5 Mg Tab PO DAILY CEM Citalopram Hydrobromide 40 mg 03/11/25 09:00 03/12/25 09:13 Citalopram Hydrobromide 20 Mg Tab PO 40 mg DAILY CEM Administration Heparin Sodium (Porcine) 5,000 unit 03/11/25 09:00 03/12/25 09:13 Heparin Sodium,Porcine 5,000 Unit/Ml 1 Ml Vial SQ 5,000 unit Q12HR CEM Administration Ceftriaxone Sodium 2 gm/ 50 mls @ 100 mls/hr 03/11/25 09:00 03/12/25 09:13 Dextrose/Water IVPB 03/14/25 09:29 100 mls/hr Q24HR CEM Administration Protocol Sodium Chloride 1,000 mls @ 75 mls/hr 03/11/25 07:15 03/12/25 06:57 Saline 0.9% IV Not Given .[id number] CEM Lamotrigine 100 mg 03/11/25 21:00 03/11/25 22:09 Lamotrigine 100 Mg Tab PO 100 mg HS CEM Administration Lamotrigine 200 mg 03/11/25 09:00 03/12/25 09:12 Lamotrigine 100 Mg Tab PO 200 mg DAILY CEM Administration Levetiracetam 1,000 mg 03/11/25 09:00 03/12/25 09:12 Levetiracetam 500 Mg Tab PO 1,000 mg Q12HR CEM Administration Losartan Potassium 100 mg 03/12/25 09:30 Losartan 50 Mg Tab PO DAILY CEM Methylprednisolone Sodium Succinate 60 mg 03/11/25 06:00 03/12/25 06:37 Methylprednisolone Sod Succi 125 Mg/2 Ml Vial IV 60 mg Q6HR CEM Administration Miscellaneous Information 1 each 03/10/25 17:11 Pneumonia Protocol Utilized 1 Each Misc PO ONCE PRN Per Protocol Nicotine 1 patch 03/11/25 11:00 03/12/25 09:13 Nicotine 21mg/24hr Patch TRANSDERM 1 patch DAILY CEM Administration Pantoprazole Sodium 40 mg 03/11/25 07:30 03/12/25 06:37 Pantoprazole 40 Mg Tablet PO 40 mg [id number] CEM Administration Objective - Vital Signs Vital signs: Vital Signs Temp 97.6 F 03/12/25 06:49 Pulse 66 03/12/25 06:49 Resp 19 03/12/25 06:49 BP 155/88 03/12/25 06:49 Pulse Ox 99 03/12/25 09:00 FiO2 Intake & Output 03/11/25 03/12/25 03/12/25 18:59 06:59 18:59 Other: Voiding Method Toilet Toilet # Voids 2 2 # Bowel Movements 0 - Exam -GENERAL: The patient is alert and oriented x3, not in any acute distress. Well developed, well nourished. Obese HEENT: Pupils are round and equally reacting to light. EOMI. No scleral icterus. No conjunctival pallor. Normocephalic, atraumatic. No pharyngeal erythema. No thyromegaly. CARDIOVASCULAR: S1 and S2 present. No murmurs, rubs, or gallops. -PULMONARY: Chest is clear to auscultation, with decreased air entry on both sides, no bilateral scattered wheezing , no crackles. ABDOMEN: Soft, nontender, nondistended, normoactive bowel sounds. No palpable organomegaly. MUSCULOSKELETAL: No joint swelling or deformity. EXTREMITIES: No cyanosis, clubbing, or pedal edema. NEUROLOGICAL: Gross neurological examination did not reveal any focal deficits. SKIN: No rashes. no petechiae. - Labs CBC & Chem 7: 03/12/25 04:44 03/12/25 04:44 Labs: Abnormal Lab Results - Last 24 Hours (Table) 03/12/25 03/12/25 Range/Units 04:44 04:44 RBC 4.08 L (4.40-5.60) X 10*6/uL Hgb 11.8 L (13.0-17.0) g/dL Hct 37.4 L (39.6-50.0) % MCHC 31.6 L (32.0-37.0) g/dL Lymphocytes # 0.42 L (0.90-5.00) X 10*3/uL Eosinophils # 0 L (0.04-0.35) X 10*3/uL Glucose 124 H (70-110) mg/dL Microbiology - Last 24 Hours (Table) 03/10/25 17:49 Blood Culture - Preliminary Blood Assessment and Plan Assessment: Acute COPD exacerbation Right lower lobe pneumonia Acute hypoxic respiratory failure Nicotine dependence Obesity with BMI 36.8 Mild acute kidney injury Seizure disorder Plan: Continue ceftriaxone and Zithromax Continue with IV Solu-Medrol Continue with normal saline 75 mL/h Nicotine patch Pulmonary team consult Continue seizure medication Keppra and Lamictal resume Norvasc and losartan with close monitoring of blood pressure Labs and medication were reviewed.. Continue same treatment. Continue with symptomatic treatment. Resume home medication. Monitor labs and vitals. DVT and GI prophylaxis. Further recommendations as per clinical course of the patient DVT prophylaxis: Subcutaneous heparin GI Prophylaxis: Pepcid PT/OT: Pending Prognosis is guarded
[2025-03-12] MEDS: LOSARTAN 50 MG TAB PO SCH (10:16)
[2025-03-12] MEDS: amLODIPine 5 MG TAB PO SCH (10:16)
[2025-03-12 12:24] LABS: Appearance,Urine Clear (Clear); Bilirubin,Urine Negative (Negative); Blood,Urine Negative (Negative); Color,Urine Colorless; Glucose,Urine (UA) Negative (Negative); Ketones,Urine Negative (Negative); Leukocyte Esterase,Urine Negative (Negative); Nitrite,Urine Negative (Negative); Protein,Urine Negative (Negative); Specific Gravity,Urine 1.021 (1.001-1.035); Urobilinogen,Urine <2.0 mg/dL (<2.0)
--- NOTE | 2025-03-12 14:16 | P.PN ---
Subjective Progress Note Date: 03/12/25 Patient is a 49-year-old male with past medical history significant for asthma, current ongoing tobacco dependence, seizure disorder, hypertension. His primary care provider is Dr. Salinas. Patient brought in by EMS yesterday afternoon after being originally called for increased work of breathing. Patient was found to be hypoxic with an SpO2 reading in the low 80s on room air. No improvement with multiple nebulized treatments. Reported to be in some respiratory distress and wheezing in the ED. Patient states he had a hard time breathing over the last 2 days. Associated cough with occasional sputum production. Denies any fevers or chills. Denies hemoptysis. Denies nausea, vomiting, diarrhea, abdominal pain. Denies any recent outpatient treatment with antibiotics. Denies any known sick contacts. Denies any chest pain heart palpitations, lightheadedness or syncopal events, lower extremity edema. States he does have a history of asthma/COPD, has an as needed albuterol rescue inhaler at home which he does not routinely need. He also smokes approximately 1 pack/day. Workup in the emergency department including a chest x-ray remarkable for a subtle right lower lobe airspace opacity. CBC: WBC count 6, hemoglobin 12.5, platelets 175. CMP with sodium 140, potassium 3.7, chloride 103, serum bicarb 29, BUN 14, creatinine 1.34, glucose 118. Lactic 0.7. LFTs unremarkable. Troponin less than 0.012. NT proBNP 464. Normal saline infusing at 50 mL/h. Patient currently being evaluated on the general medical floor. He is sitting up in bed on 2 L/min sumaya al cannula. Endorses above-mentioned symptoms. Not in any acute distress while at rest. Currently afebrile. Covered on a combination of azithromycin and Rocephin. Nontoxic appearance. Vital signs are stable. On 03/12/2025, the patient is being seen for a follow-up. Patient is doing well. Less short of breath compared to yesterday. The patient will be taken off the oxygen as the patient is currently on 2 L of oxygen by nasal cannula and will assess his oxygenation on room air oxygen. White cell count is at 8.5 with a heme of 11.8 and a platelet count of 273. Electrolytes all within normal limits. UA is negative. Blood culture is negative and the patient remains on a combination of Rocephin and Zithromax. The patient is also on Lantus nebulized units 4 times daily and IV Solu-Medrol 60 mg every 6 hours. IV fluids are currently at KVO. No other significant events overnight. Denies having any chest pain. No pleurisy. No hemoptysis. Objective - Vital Signs Vital signs: Vital Signs Temp 97.6 F 03/12/25 06:49 Pulse 66 03/12/25 09:17 Resp 19 03/12/25 09:17 BP 155/88 03/12/25 06:49 Pulse Ox 99 03/12/25 09:00 FiO2 Intake & Output 03/11/25 03/12/25 03/12/25 18:59 06:59 18:59 Other: Voiding Method Toilet Toilet Toilet # Voids 2 2 # Bowel Movements 0 - Exam GENERAL EXAM: Alert, 49-year-old male, well-nourished, comfortable in no apparent distress. HEAD: Normocephalic and atraumatic EYES: Normal reaction of pupils, equal size. NOSE: Clear with pink turbinates. THROAT: No erythema or exudates. NECK: No masses, no JVD. CHEST: No chest wall deformity. LUNGS: Equal air entry with expiratory wheezing and rhonchi heard predominantly over the right posterior lung velez. on 2 L/min nasal cannula. No conversati onal dyspnea or accessory muscle use while at rest CVS: S1 and S2 normal with no audible murmur, regular rhythm. No extra heart sounds ABDOMEN: No hepatosplenomegaly, active bowel sounds, no guarding or rigidity. SPINE: No scoliosis or deformity SKIN: Chronic venous stasis changes to the lower extremities bilaterally CENTRAL NERVOUS SYSTEM: No focal deficits, tone is normal in all 4 extremities. EXTREMITIES: There is no peripheral edema, clubbing, or cyanosis. Peripheral pulses are intact. - Labs CBC & Chem 7: 03/12/25 04:44 03/12/25 04:44 Labs: Abnormal Lab Results - Last 24 Hours (Table) 03/12/25 03/12/25 Range/Units 04:44 04:44 RBC 4.08 L (4.40-5.60) X 10*6/uL Hgb 11.8 L (13.0-17.0) g/dL Hct 37.4 L (39.6-50.0) % MCHC 31.6 L (32.0-37.0) g/dL Lymphocytes # 0.42 L (0.90-5.00) X 10*3/uL Eosinophils # 0 L (0.04-0.35) X 10*3/uL Glucose 124 H (70-110) mg/dL Microbiology - Last 24 Hours (Table) 03/10/25 17:49 Blood Culture - Preliminary Blood Assessment and Plan Assessment: Acute exacerbation of asthma/COPD, chest x-ray showing subtle right lower lobe infiltrate concerning for possible community-acquired pneumonia, clinically stable and the patient seems to be less short of breath compared to yesterday. Acute hypoxemic respiratory failure, currently on 2 L/min nasal cannula, migel german to above Acute on probably chronic kidney disease, creatinine stable at 1.3 Chronic ongoing tobacco dependence, current 1 pack/day smoker History of seizure disorder, last reported seizure approximately 4 or 5 years ago Hypertension History of allergic rhinitis Obesity, with a BMI of 36.8 kg/m Plan Clinically stable Wean FiO2 and assess the patient's oxygenation on room air oxygen Continue combination of azithromycin and Rocephin Repeat chest x-ray in the morning Continue DuoNebs [id number] Continue IV Solu-Medrol, to be transition to prednisone burst taper at time of discharge Smoking cessation counseling performed Nicotine replacement refused We will continue to follow possible discharge today or within next 24 hours.
[2025-03-13 00:58] VITALS: RESP 16
[2025-03-13 08:22] VITALS: BP 156/61; PULSE 68; TEMP 97.6
[2025-03-13] MEDS: CEFDINIR 300 MG CAP PO SCH (11:21)
--- NOTE | 2025-03-13 16:20 | P.PN ---
Subjective Progress Note Date: 03/13/25 Patient is a 49-year-old male with past medical history significant for asthma, current ongoing tobacco dependence, seizure disorder, hypertension. His primary care provider is Dr. Salinas. Patient brought in by EMS yesterday afternoon after being originally called for increased work of breathing. Patient was found to be hypoxic with an SpO2 reading in the low 80s on room air. No improvement with multiple nebulized treatments. Reported to be in some respiratory distress and wheezing in the ED. Patient states he had a hard time breathing over the last 2 days. Associated cough with occasional sputum production. Denies any fevers or chills. Denies hemoptysis. Denies nausea, vomiting, diarrhea, abdominal pain. Denies any recent outpatient treatment with antibiotics. Denies any known sick contacts. Denies any chest pain heart palpitations, lightheadedness or syncopal events, lower extremity edema. States he does have a history of asthma/COPD, has an as needed albuterol rescue inhaler at home which he does not routinely need. He also smokes approximately 1 pack/day. Workup in the emergency department including a chest x-ray remarkable for a subtle right lower lobe airspace opacity. CBC: WBC count 6, hemoglobin 12.5, platelets 175. CMP with sodium 140, potassium 3.7, chloride 103, serum bicarb 29, BUN 14, creatinine 1.34, glucose 118. Lactic 0.7. LFTs unremarkable. Troponin less than 0.012. NT proBNP 464. Normal saline infusing at 50 mL/h. Patient currently being evaluated on the general medical floor. He is sitting up in bed on 2 L/min sumaya al cannula. Endorses above-mentioned symptoms. Not in any acute distress while at rest. Currently afebrile. Covered on a combination of azithromycin and Rocephin. Nontoxic appearance. Vital signs are stable. On 03/12/2025, the patient is being seen for a follow-up. Patient is doing well. Less short of breath compared to yesterday. The patient will be taken off the oxygen as the patient is currently on 2 L of oxygen by nasal cannula and will assess his oxygenation on room air oxygen. White cell count is at 8.5 with a heme of 11.8 and a platelet count of 273. Electrolytes all within normal limits. UA is negative. Blood culture is negative and the patient remains on a combination of Rocephin and Zithromax. The patient is also on Lantus nebulized units 4 times daily and IV Solu-Medrol 60 mg every 6 hours. IV fluids are currently at KVO. No other significant events overnight. Denies having any chest pain. No pleurisy. No hemoptysis. On 03/13/2025, the patient is being seen for a follow-up. The patient is doing well. His oxygenation has improved and the patient is currently on room air oxygen. The plan is to discharge the patient home on a course of antibiotics to be followed up on outpatient basis. On today's evaluation, the patient has no specific complaints. No chest pain. No fever or chills. He reports marked improvement in respiratory status. No new labs are available from today. Noted that his viral screen was negative. His blood culture was also negative. His Legionella urine antigen was also negative. Objective - Vital Signs Vital signs: Vital Signs Temp 97.6 F 03/13/25 07:44 Pulse 68 03/13/25 07:44 Resp 16 03/13/25 07:44 BP 156/61 03/13/25 07:44 Pulse Ox 95 03/13/25 07:44 FiO2 Intake & Output 03/12/25 03/13/25 03/13/25 18:59 06:59 18:59 Other: Voiding Method Toilet Toilet # Voids 3 2 - Exam GENERAL EXAM: Alert, 49-year-old male, well-nourished, comfortable in no apparent distress. HEAD: Normocephalic and atraumatic EYES: Normal reaction of pupils, equal size. NOSE: Clear with pink turbinates. THROAT: No erythema or exudates. NECK: No masses, no JVD. CHEST: No chest wall deformity. LUNGS: Equal air entry with expiratory wheezing and rhonchi heard predominantly over the right posterior lung velez. on 2 L/min nasal cannula. No conversational dyspnea or accessory muscle use while at rest CVS: S1 and S2 normal with no audible murmur, regular rhythm. No extra heart sounds ABDOMEN: No hepatosplenomegaly, active bowel sounds, no guarding or rigidity. SPINE: No scoliosis or deformity SKIN: Chronic venous stasis changes to the lower extremities bilaterally CENTRAL NERVOUS SYSTEM: No focal deficits, tone is normal in all 4 extremities. EXTREMITIES: There is no peripheral edema, clubbing, or cyanosis. Peripheral pulses are intact. - Labs CBC & Chem 7: 03/12/25 04:44 03/12/25 04:44 Labs: Microbiology - Last 24 Hours (Table) 03/10/25 17:49 Blood Culture - Preliminary Blood Assessment and Plan Assessment: Acute exacerbation of asthma/COPD, chest x-ray showing subtle right lower lobe infiltrate concerning for possible community-acquired pneumonia, clinically stable and the patient reports marked improvement in respiratory status, essentially back to his baseline Acute hypoxemic respiratory failure, improved and the patient is currently on room air oxygen. Acute on probably chronic kidney disease, creatinine stable at 1.3 Chronic ongoing tobacco dependence, current 1 pack/day smoker History of seizure disorder, last reported seizure approximately 4 or 5 years ago Hypertension History of allergic rhinitis Obesity, with a BMI of 36.8 kg/m Plan Clinically stable Patient currently on room air oxygen Patient to be discharged home on a course of Omnicef Prednisone burst taper Continue bronchodilators at home Smoking cessation counseling performed Nicotine replacement refused We will continue to follow on outpatient basis at the pulmonary clinic and resume home medications.
--- NOTE | 2025-03-13 21:53 | P.DS ---
Providers Date of admission: 03/10/25 17:13 Attending physician: Ora Marcos Consults: 03/10/25 17:11 Consult Physician Routine Consulting Provider: Kasey Sandoval Consult Reason/Comments: hypoxia Do you want consulting provider notified?: Yes Primary care physician: Yenni Salinas Hospital Course: Diagnoses: Acute exacerbation of asthma/COPD, chest x-ray showing subtle right lower lobe infiltrate concerning for possible community-acquired pneumonia, clinically stable and the patient seems to be less short of breath almost resolved Acute hypoxemic respiratory failure, currently on 2 L/min nasal cannula, secondary to above. Resolved and he does not need oxygen upon discharge Acute on probably chronic kidney disease, creatinine stable at 1.3 Chronic ongoing tobacco dependence, current 1 pack/day smoker History of seizure disorder, last reported seizure approximately 4 or 5 years ago Hypertension History of allergic rhinitis Obesity, with a BMI of 36.8 kg/m Hospital course: Patient is a 49-year-old male with past medical history significant for asthma, current ongoing tobacco dependence, seizure disorder, hypertension. His primary care provider is Dr. Salinas. Patient brought in by EMS yesterday afternoon after being originally called for increased work of breathing. IV Solu-Medrol IV fluid and ceftriaxone Zithromax. Patient showed interval improvement and today his breathing resolved. No chest pain. He is saturating well on room air for more than 24 hours. He checked with the staff and patient does not need oxygen upon discharge Patient was cleared for discharge by pulmonary service Patient denies any other new complaints and eager to go home today Patient will be discharged on taper prednisone and short course of oral antibiotics Problems and management plan were discussed with the patient and he verbalized understanding and acceptance Patient was found stable and can be discharged home in guarded prognosis however he needs follow-up as an outpatient. Patient was instructed to follow up with PCP Dr. Salinas within one week and patient agrees Patient was instructed to follow-up with capacity analyst Dr. Joseph in 2 weeks and he agrees Physical exam Gen: patient is a AAOx3, no distress CVS: S1-S2, RRR, no murmur Lungs: B/L CTA, no wheezing Abdomen: soft, no distention, no tenderness, positive bowel sounds Extremity: no leg edema or induration Time spent more than 35 minutes Patient Condition at Discharge: Serious Plan - Discharge Summary New Discharge Prescriptions: New Nicotine 21Mg/24Hr Patch [Habitrol] 1 patch TRANSDERM DAILY #3 patch Cefdinir [Omnicef] 300 mg PO BID 2 Days #3 cap predniSONE 10 mg PO DIRECTED #40 tab Omeprazole [PriLOSEC] 20 mg PO AC-BRKFST 15 Days #30 cap Continue lamoTRIgine [LaMICtal] 200 mg PO DAILY Citalopram Hydrobromide [CeleXA] 40 mg PO DAILY levETIRAcetam [Keppra] 1,000 mg PO Q12HR amLODIPine [Norvasc] 10 mg PO DAILY lamoTRIgine [LaMICtal] 100 mg PO HS Albuterol Inhaler [Ventolin Hfa Inhaler] 2 puff INHALATION RT-Q6H PRN PRN Reason: Shortness Of Breath Losartan Potassium 100 mg PO DAILY No Action Dextroamphetamine/Amphetamine [Adderall] 40 mg PO DAILY Discharge Medication List Citalopram Hydrobromide [CeleXA] 40 mg PO DAILY 10/31/17 [History] Dextroamphetamine/Amphetamine [Adderall] 40 mg PO DAILY 10/31/17 [History] amLODIPine [Norvasc] 10 mg PO DAILY 10/31/17 [History] lamoTRIgine [LaMICtal] 200 mg PO DAILY 10/31/17 [History] levETIRAcetam [Keppra] 1,000 mg PO Q12HR 10/31/17 [History] Albuterol Inhaler [Ventolin Hfa Inhaler] 2 puff INHALATION RT-Q6H PRN 11/20/17 [History] lamoTRIgine [LaMICtal] 100 mg PO HS 11/20/17 [History] Losartan Potassium 100 mg PO DAILY 03/10/25 [History] Cefdinir [Omnicef] 300 mg PO BID 2 Days #3 cap 03/13/25 [Rx] Nicotine 21Mg/24Hr Patch [Habitrol] 1 patch TRANSDERM DAILY #3 patch 03/13/25 [Rx] Omeprazole [PriLOSEC] 20 mg PO AC-BRKFST 15 Days #30 cap 03/13/25 [Rx] predniSONE 10 mg PO DIRECTED #40 tab 03/13/25 [Rx] Follow up Appointment(s)/Referral(s): Yenni Salinas MD [Primary Care Provider] - 03/17/25 4:00 am Kasey Sandoval MD [STAFF PHYSICIAN] - 03/17/25 8:30 am (Office wanted to schedule earlier and had an opening sunday.) Patient Instructions/Handouts: COPD (Chronic Obstructive Pulmonary Disease) (DC) Activity/Diet/Wound Care/Special Instructions: Heart healthy diet Activity is restricted till you see your doctor Discharge Disposition: HOME SELF-CARE
== END 2025-03-13 15:28 | disposition home or self-care (01) | DRG 193 ==
LOC: EC 15:20 → 4SSUR 17:13
PROVIDERS: ADMIT Hospitalist; ATTEND Hospitalist
DX: J18.9 Pneumonia, unspecified organism (principal); J96.01 Acute respiratory failure with hypoxia; J44.0 Chronic obstructive pulmonary disease with (acute) lower respiratory infection; G40.909 Epilepsy, unspecified, not intractable, without status epilepticus; F31.9 Bipolar disorder, unspecified; Z68.36 Body mass index [BMI] 36.0-36.9, adult; I12.9 Hypertensive chronic kidney disease with stage 1 through stage 4 chronic kidney disease, or unspecified chronic kidney disease; N18.9 Chronic kidney disease, unspecified; J44.1 Chronic obstructive pulmonary disease with (acute) exacerbation; N17.9 Acute kidney failure, unspecified; J45.901 Unspecified asthma with (acute) exacerbation; Z11.52 Encounter for screening for COVID-19; E66.9 Obesity, unspecified; F17.210 Nicotine dependence, cigarettes, uncomplicated; J30.9 Allergic rhinitis, unspecified; F90.9 Attention-deficit hyperactivity disorder, unspecified type; Z79.899 Other long term (current) drug therapy; Z82.49 Family history of ischemic heart disease and other diseases of the circulatory system
CPT/HCPCS: 36415; 71046; 80048; 80053; 81003; 83605; 83735; 83880; 84145; 84484; 85025; 85610; 85730; 87040; 87449; 87636; 93005; 94640; 96365; 96367; 96375; 99291